=== PATIENT | female | born 1985 | race African-American/Black ===

== ENCOUNTER 2017-01-26 01:09 | Emergency (ER) | payer MEDICAID ==
[~2017-01-26] VITALS: Ht 167.6 cm; Wt 61.0 kg
[~2017-01-26 01:09] MED LIST: LORA2VIA33 IJ
[2017-01-26 03:10] LABS: HCG SCREEN NEGATIVE
[2017-01-26] MEDS ORDERED: HYDROCODONE/APAP 7.5/325MG 1 TAB TABLET PO NR (03:15)
[2017-01-26 04:01] VITALS: BP 128/78
== END 2017-01-26 05:18 | disposition home or self-care (01) ==
LOC: ER 01:31
DX: S16.1XXA Strain of muscle, fascia and tendon at neck level, initial encounter (principal); S39.012A Strain of muscle, fascia and tendon of lower back, initial encounter; F41.9 Anxiety disorder, unspecified; F17.210 Nicotine dependence, cigarettes, uncomplicated; V43.52XA Car driver injured in collision with other type car in traffic accident, initial encounter; Y93.89 Activity, other specified; Y92.488 Other paved roadways as the place of occurrence of the external cause
CPT/HCPCS: 70450; 72100; 72125; 84703; 99285; Z7610

== ENCOUNTER 2017-02-16 13:31 | Emergency (ER) | payer MEDICAID ==
[~2017-02-16] VITALS: Ht 157.5 cm; Wt 72.0 kg
[2017-02-16 14:10] VITALS: BP 118/88
== END 2017-02-16 21:45 | disposition left against medical advice (07) ==
LOC: ER 21:42
DX: Z53.21 Procedure and treatment not carried out due to patient leaving prior to being seen by health care provider (principal); F41.9 Anxiety disorder, unspecified; F17.210 Nicotine dependence, cigarettes, uncomplicated